=== PATIENT | female | born 1970 | race Caucasian/White ===

== ENCOUNTER 2019-05-12 14:16 | Inpatient (IN) | payer BC ==
[~2019-05-12] VITALS: Ht 170.2 cm; Wt 69.0 kg
[2019-05-12 16:51] VITALS: BP 145/80; PULSE 85; RESP 19
[2019-05-12] MEDS ORDERED: ONDANSETRON 4 MG INJ IV PRN (17:00)
[2019-05-12] MEDS ORDERED: LORAZEPAM 2 MG INJ IV ONE (17:00)
[2019-05-12 17:09] VITALS: Ht 170.2 cm; Wt 69.0 kg
[2019-05-12] MEDS: morphine 4 MG/ML VIAL IV PRN ×2 (17:17→21:01)
[2019-05-12] MEDS: DEXTROSE 5%-0.45% NACL 1,000 ML IV SCH (17:17)
[2019-05-12 20:05] VITALS: BP 119/61; PULSE 80; RESP 20
[2019-05-13 02:00] VITALS: BP 88/59; PULSE 84; RESP 17
[2019-05-13] MEDS: DEXTROSE 5%-0.45% NACL 1,000 ML IV SCH (05:20)
[2019-05-13 07:53] VITALS: BP 110/59; PULSE 62
== END 2019-05-13 11:08 | disposition home or self-care (01) | DRG 392 ==
LOC: MS1 16:36
PROVIDERS: ADMIT Internal Medicine; ATTEND Internal Medicine
DX: R10.13 Epigastric pain (principal); R94.5 Abnormal results of liver function studies
CPT/HCPCS: 74181; 80076; J2060; J2270; J2405; J7042